=== PATIENT | female | born 2005 | race Hispanic/Latino ===

== ENCOUNTER 2025-03-17 00:57 | Inpatient (IN) | payer BC ==
[2025-03-17 02:04] LABS: #Basophils 0.04 10x3/uL (0.0-0.2); #Eosinophils Less than 0.03 10x3/uL (0.0-0.7); #Monocytes 1.37 10x3/uL (0.11-0.59); #Neutrophils 15.21 10x3/uL (1.40-6.50); %Basophils 0.2 % (0.0-1.0); %Eosinophils 0.0 % (0.0-10.0); %Lymphocytes 5.1 % (28.0-48.0); %Monocytes 7.8 % (0.0-4.0); %Neutrophils 86.3 % (31.0-61.0); Hematocrit 39.3 % (36.0-47.0); Hemoglobin 12.9 g/dL (12.0-16.0); Mean Corpuscular Hemoglobin 30.1 pg (25.0-35.0); Mean Corpuscular Volume 91.8 fL (78.0-98.0); Platelet Count 289 10x3/uL (130-400); Red Blood Cell (RBC) Count 4.28 mill/uL (4.00-5.20); White Blood Cell (WBC) Count 17.62 10x3/uL (4.8-10.8)
[2025-03-17] MEDS ORDERED: Acetaminophen 500 MG TAB ONE (02:11)
[2025-03-17 02:22] LABS: ALT (SGPT) 10 U/L (Less than 34); AST (SGOT) 14 U/L (11-34); Albumin 4.0 g/dL (3.1-4.5); Alkaline Phosphatase 68 U/L (40-100); Anion Gap 14 mmol/L (10-20); BUN (Urea Nitrogen) 9 mg/dL (7.0-18.7); Bilirubin, Total 0.7 mg/dL (0.3-1.2); Calc. Creatinine Clearance 0 mL/min (70-130); Calcium 9.5 mg/dL (7.8-10.44); Carbon Dioxide 22 mmol/L (22-29); Chloride 106 mmol/L (98-107); Globulin 3.6 g/dL (2.4-3.5); Glucose 116 mg/dL (70-105); Potassium 3.7 mmol/L (3.5-5.1); Sodium 138 mmol/L (136-145)
[2025-03-17 04:17] LABS: Pregnancy Test - Urine (BHCG) Negative (Negative); Pregu Control Background? CLEAR/WHITE (CLR/WHITE); Pregu Control Bar Appear? YES (CONTROL BAR)
[2025-03-17 04:19] LABS: CAUTI Indications for Culture Dysuria,urgency,freq; Glucose, Urine (Dipstick) Normal (Negative); Leukocyte 250 Leu/uL (Negative); Protein, Urine (Dipstick) 50 mg/dL (Neg-Trace); RBC/HPF 21-50 HPF (0-3); Specific Gravity, Urine 1.022 (1.002-1.036); WBC/HPF Greater than 50 HPF (0-3)
[2025-03-17 04:21] LABS: Bacteria/HPF 1+ HPF (None Seen)
[2025-03-17 04:22] LABS: Urine Culture Reflex Yes Yes
[2025-03-17] MEDS ORDERED: cefTRIAXone (ROCEPHIN) 2 GM VIAL ONE (06:02)
[2025-03-17] MEDS ORDERED: Ondansetron PF 4 MG/2 ML Vial ONE ×2 (06:24→13:39)
[2025-03-17] MEDS ORDERED: Ketorolac Tromethamine 30 MG (1 mL) VIAL ONE ×2 (06:24→10:58)
[2025-03-17] MEDS ORDERED: Acetaminophen 325 MG TAB ONE ×2 (07:57→13:35)
[2025-03-17 10:20] LABS: Magnesium 1.7 mg/dL (1.7-2.2)
[2025-03-17] MEDS ORDERED: NS 0.9% w/ 20 MEQ KCL 1,000 ML ONE (10:45)
[2025-03-17] MEDS: Ketorolac Tromethamine 30 MG (1 mL) VIAL IVP PRN (11:09)
[2025-03-17] MEDS: NS 0.9% w/ 20 MEQ KCL 1,000 ML/1,000 ML BAG IV SCH (11:11)
[2025-03-17] MEDS ORDERED: Iopamidol 370 76% 100 ML VIAL ONE (13:19)
[2025-03-17] MEDS: Ondansetron PF 4 MG/2 ML Vial IVP PRN (13:46)
[2025-03-18] MEDS: Melatonin 3 MG TAB PO PRN (00:17)
[2025-03-18] MEDS: cefTRIAXone\\ROCEPHIN 1 GM in Sodium Chloride 0.9% 100 ML IVPB SCH (05:38)
[2025-03-18 06:06] LABS: Hematocrit 31.3 % (36.0-47.0); Hemoglobin 10.5 g/dL (12.0-16.0); Mean Corpuscular Hemoglobin 30.4 pg (25.0-35.0); Mean Corpuscular Volume 90.7 fL (78.0-98.0); Platelet Count 193 10x3/uL (130-400); Red Blood Cell (RBC) Count 3.45 mill/uL (4.00-5.20); White Blood Cell (WBC) Count 17.86 10x3/uL (4.8-10.8)
[2025-03-18 06:23] LABS: Anion Gap 6 mmol/L (10-20); BUN (Urea Nitrogen) 4 mg/dL (7.0-18.7); Calc. Creatinine Clearance 0 mL/min (70-130); Calcium 8.2 mg/dL (7.8-10.44); Carbon Dioxide 19 mmol/L (22-29); Chloride 112 mmol/L (98-107); Glucose 99 mg/dL (70-105); Potassium 3.3 mmol/L (3.5-5.1); Sodium 134 mmol/L (136-145)
[2025-03-18 06:37] LABS: Platelet Adequacy Comment Platelets Normal; RBC Morphology Within Normal Limits; Smudge Cells 1.0 %
[2025-03-18] MEDS: Pantoprazole 40 MG DR.TAB PO SCH (09:19)
[2025-03-18 12:10] VITALS: BMI 25.2
[2025-03-18] MEDS: Acetaminophen 325 MG TAB PO PRN (21:20)
[2025-03-20 07:37] LABS: Hematocrit 31.3 % (36.0-47.0); Hemoglobin 10.2 g/dL (12.0-16.0); Mean Corpuscular Hemoglobin 30.0 pg (25.0-35.0); Mean Corpuscular Volume 92.1 fL (78.0-98.0); Platelet Count 222 10x3/uL (130-400); Red Blood Cell (RBC) Count 3.40 mill/uL (4.00-5.20); White Blood Cell (WBC) Count 8.86 10x3/uL (4.8-10.8)
[2025-03-20 07:43] LABS: Anion Gap 14 mmol/L (10-20); BUN (Urea Nitrogen) 6 mg/dL (7.0-18.7); Calc. Creatinine Clearance 150 mL/min (70-130); Calcium 8.6 mg/dL (7.8-10.44); Carbon Dioxide 20 mmol/L (22-29); Chloride 111 mmol/L (98-107); Glucose 92 mg/dL (70-105); Potassium 3.4 mmol/L (3.5-5.1); Sodium 142 mmol/L (136-145)
[2025-03-20] MEDS: Metoclopramide HCl 10 MG (2 mL) VIAL IVP SCH (19:42)
[2025-03-21] MEDS ORDERED: Simethicone Chewable 80 MG TAB PO PRN (10:20)
[2025-03-21] MEDS: Metoclopramide HCl 10 MG (2 mL) VIAL IVP SCH (20:47)
[2025-03-22 05:49] LABS: Hematocrit 33.6 % (36.0-47.0); Hemoglobin 10.9 g/dL (12.0-16.0); Mean Corpuscular Hemoglobin 29.6 pg (25.0-35.0); Mean Corpuscular Volume 91.3 fL (78.0-98.0); Platelet Count 298 10x3/uL (130-400); Red Blood Cell (RBC) Count 3.68 mill/uL (4.00-5.20); White Blood Cell (WBC) Count 8.01 10x3/uL (4.8-10.8)
[2025-03-22 06:07] LABS: Anion Gap 14 mmol/L (10-20); BUN (Urea Nitrogen) 7 mg/dL (7.0-18.7); Calc. Creatinine Clearance 126 mL/min (70-130); Calcium 9.0 mg/dL (7.8-10.44); Carbon Dioxide 23 mmol/L (22-29); Chloride 106 mmol/L (98-107); Glucose 81 mg/dL (70-105); Potassium 3.4 mmol/L (3.5-5.1); Sodium 140 mmol/L (136-145)
[2025-03-22 11:01] VITALS: BP 130/82; TEMP 97.7
== END 2025-03-22 14:01 | disposition home or self-care (01) | DRG 871 ==
LOC: ERS 00:57 → ERHOLD 07:09 → T4-B 16:34
PROVIDERS: ADMIT Internal Medicine; ATTEND Internal Medicine
PROC: 3E03329 Introduction of Other Anti-infective into Peripheral Vein, Percutaneous Approach (ICD-10-PCS; principal; 2025-03-17)
PROC: 05HY33Z Insertion of Infusion Device into Upper Vein, Percutaneous Approach (ICD-10-PCS; 2025-03-21)
DX: A41.51 Sepsis due to Escherichia coli [E. coli] (principal); N15.1 Renal and perinephric abscess; N10 Acute pyelonephritis; Z16.24 Resistance to multiple antibiotics; Z16.12 Extended spectrum beta lactamase (ESBL) resistance; R65.20 Severe sepsis without septic shock; F41.9 Anxiety disorder, unspecified; K52.9 Noninfective gastroenteritis and colitis, unspecified; G43.909 Migraine, unspecified, not intractable, without status migrainosus; K59.09 Other constipation; Z87.442 Personal history of urinary calculi; Z79.899 Other long term (current) drug therapy
CPT/HCPCS: 36415; 74177; 80048; 81001; 81025; 83605; 83690; 83735; 85025; 85027; 87040; 87077; 87086; 87186; 96365; 96375; J0696; J1335; J1885; J2185; J2272; J2405; J2550; J2765; J3480; J7120; Q9967